=== PATIENT | male | born 1960 | race Caucasian/White ===

== ENCOUNTER 2020-01-20 21:23 | Emergency (ER) | payer SELFPAY ==
[~2020-01-20] VITALS: Ht 172.7 cm; Wt 100.0 kg
[2020-01-20] MEDS ORDERED: SODIUM CHLORIDE 0.9% 1,000 ML IV ONE ×3 (21:39→22:15)
[2020-01-20] MEDS ORDERED: ONDANSETRON HCL 4MG/2ML INJ IV STA (21:39)
[2020-01-20] MEDS ORDERED: PANTOPRAZOLE SODIUM 40 MG/VIAL IV ONE (22:15)
[2020-01-20] MEDS ORDERED: OCTREOTIDE 1,000 MCG in SODIUM CHLORIDE 0.9% 100 ML IV ONE (23:00)
[2020-01-20] MEDS ORDERED: OCTREOTIDE 1,000 MCG in SODIUM CHLORIDE 0.9% 100 ML IV NR (23:02)
[2020-01-20] MEDS ORDERED: NOREPINEPHRINE 4MG/250ML PMX 250 ML IV ONE (23:30)
[2020-01-20 23:39] LABS: HEMATOCRIT. 23.3 % (42.0-52.0); MEAN CORPUSCULAR HEMOGLOBIN 24.6 pg (28.0-32.0); MEAN CORPUSCULAR VOLUME 84.6 fL (80.0-94.0); MEAN PLATELET VOLUME 10.7 fl (7.4-10.4); PLATELET 75 x1000/uL (130-400); RED BLOOD CELL COUNT 2.75 mill/uL (4.7-6.1); RED CELL DISTRIBUTION WIDTH 26.3 % (11.6-14.6)
[2020-01-20 23:45] LABS: CHLORIDE 116 mEq/L (98-107); HEMOGLOBIN. 6.8 g/dL (14.0-18.0)
[2020-01-20 23:48] LABS: BG BASE EXCESS -20.3 mmol/L (-2.0-2.0); BG CARBOXYHEMOGLOBIN 0.3 % (0.5-1.5); BG DEOXYHEMOGLOBIN 1.3 % (0.0-5.0); BG FRACTION INSPIRED OXYGEN 100; BG HCO3 ACT 8.4 mmol/L (22.0-26.0); BG METHEMOGLOBIN 0.4 % (0.0-1.5); BG OXYGEN SATURATION 98.7 % (92.0-98.5); BG PCO2 31.2 mmHg (35.0-45.0); BG SAMPLE SITE RIGHT BRACHIAL; BG TIDAL VOLUME(mL) 500 mL; BG TOTAL HEMOGLOBIN 6.7 g/dL (12.0-18.0); BG VENT MODE VENT - A/C; BG VENT RATE 16 set
[2020-01-20 23:48] LABS: ETHANOL BLOOD < 10 mg/dL
[2020-01-20 23:51] LABS: INR 2.2; PROTHROMBIN TIME 23.9 sec (9.6-11.0)
[2020-01-21] MEDS ORDERED: EPINEPHRINE 0.1MG/ML (1:10,000) 10ML SYR ONE (00:02)
[2020-01-21] MEDS ORDERED: SODIUM BICARBONATE 8.4% 1 MEQ/ML 50ML SYR IV ONE ×2 (00:05)
[2020-01-21] MEDS ORDERED: DEXTROSE 50% WATER 50ML SYRINGE IV ONE (00:15)
[2020-01-21] MEDS ORDERED: CALCIUM GLUCONATE 1,000 MG in DEXT 5% WATER 100 ML IV ONE (00:15)
[2020-01-21] MEDS ORDERED: INSULIN REGULAR (HUMULIN R) 300UNITS/3ML IV ONE (00:15)
[2020-01-21 00:34] LABS: NUCLEATED RED BLOOD CELLS 2 /100 WBC
[2020-01-21 00:35] LABS: PLATELET ESTIMATE DECREASED
[2020-01-21] MEDS: CALCIUM GLUCONATE 1,000 MG in DEXT 5% WATER 100 ML IV SCH ×2 (00:45→02:26)
[2020-01-21] MEDS ORDERED: SODIUM CHLORIDE 0.9% 1,000 ML IV ONE (01:45)
[2020-01-21] MEDS ORDERED: NOREPINEPHRINE 4MG/250ML PMX 250 ML IV ONE (02:26)
[2020-01-21 04:00] VITALS: BP 42/22
[2020-01-21] MEDS ORDERED: EPINEPHRINE 1 MG in DEXT 5% WATER 249 ML IV PRN (04:00)
== END 2020-01-21 07:57 | disposition expired ==
LOC: ER 21:23 → EDBEDREQSVC 23:28 → EDBEDREQTM 23:28 → EDBEDREQ 23:28 → ER 01-21 07:57 → CANBEDREQ 01-21 07:59
DX: I46.9 Cardiac arrest, cause unspecified (principal); K92.0 Hematemesis; D62 Acute posthemorrhagic anemia; E87.2 Acidosis; E87.5 Hyperkalemia; R79.1 Abnormal coagulation profile; D72.829 Elevated white blood cell count, unspecified; I95.9 Hypotension, unspecified; F10.288 Alcohol dependence with other alcohol-induced disorder; Y90.0 Blood alcohol level of less than 20 mg/100 ml; I51.7 Cardiomegaly
CPT/HCPCS: 31500; 36415; 36430; 36556; 36600; 71045; 80053; 80320; 82375; 82805; 82962; 85025; 85610; 86850; 86900; 86901; 86920; 86927; 92950; 93005; 96361; 96365; 96366; 96375; 99291; C9113; J0610; J1815; J2354; J2405; J3490; J7030; J7050; J7060; P9016; P9017; P9034; G0480